=== PATIENT | male | born 1955 | race Caucasian/White ===

== ENCOUNTER 2018-07-06 14:26 | Emergency (ER) | payer OTHER ==
[~2018-07-06] VITALS: Ht 177.8 cm; Wt 83.9 kg
[2018-07-06 14:26] VITALS: BP_SYST 159
[2018-07-06 15:15] VITALS: BP_SYST 159
== END 2018-07-06 15:15 | disposition home or self-care (01) ==
LOC: SED 14:26
DX: M54.10 Radiculopathy, site unspecified (principal); E11.9 Type 2 diabetes mellitus without complications; I10 Essential (primary) hypertension
CPT/HCPCS: 99283